=== PATIENT | female | born 1960 | race Caucasian/White ===

== ENCOUNTER → 2019-08-19 07:27 | Outpatient (BNVA) | payer MEDICARE, SELFPAY | PROVIDERS: Visit Provider Nurse Practitioner | DX: F41.1 Generalized anxiety disorder (principal) | CPT/HCPCS: 99213 ==

== ENCOUNTER → 2019-11-24 07:32 | Outpatient (BNVA) | payer MEDICARE, SELFPAY | PROVIDERS: Visit Provider Nurse Practitioner | DX: F41.1 Generalized anxiety disorder (principal) | CPT/HCPCS: 99213 ==

== ENCOUNTER → 2020-02-22 07:41 | Outpatient (BNVA) | payer MEDICARE, SELFPAY | PROVIDERS: Visit Provider Nurse Practitioner | DX: F41.1 Generalized anxiety disorder (principal) | CPT/HCPCS: 99213 ==

== ENCOUNTER → 2020-05-25 08:36 | Outpatient (BNVA) | payer MEDICARE, SELFPAY | PROVIDERS: Visit Provider Nurse Practitioner | DX: F41.1 Generalized anxiety disorder (principal) | CPT/HCPCS: 99213 ==

== ENCOUNTER → 2020-08-23 08:31 | Outpatient (BNVA) | payer MEDICARE, SELFPAY | PROVIDERS: Visit Provider Nurse Practitioner | DX: F41.1 Generalized anxiety disorder (principal) | CPT/HCPCS: 99214 ==

== ENCOUNTER → 2020-11-16 07:35 | Outpatient (BNVA) | payer MEDICARE, SELFPAY | PROVIDERS: Visit Provider Nurse Practitioner | DX: F41.1 Generalized anxiety disorder (principal) | CPT/HCPCS: 99214 ==

== ENCOUNTER → 2021-02-19 08:41 | Outpatient (BNVA) | payer MEDICARE, SELFPAY | PROVIDERS: Visit Provider Nurse Practitioner | DX: F41.1 Generalized anxiety disorder (principal) | CPT/HCPCS: 99214 ==

== ENCOUNTER → 2021-05-21 07:42 | Outpatient (BNVA) | payer MEDICARE, SELFPAY | PROVIDERS: Visit Provider Nurse Practitioner | DX: F41.1 Generalized anxiety disorder (principal) | CPT/HCPCS: 99214 ==

== ENCOUNTER → 2021-08-20 12:50 | Outpatient (BNVA) | payer MEDICARE, SELFPAY | PROVIDERS: Visit Provider Nurse Practitioner | DX: F41.1 Generalized anxiety disorder (principal) | CPT/HCPCS: 99214 ==

== ENCOUNTER → 2021-11-13 07:16 | Outpatient (BNVA) | payer MEDICARE, SELFPAY | PROVIDERS: Visit Provider Nurse Practitioner | DX: F41.1 Generalized anxiety disorder (principal) | CPT/HCPCS: 99214 ==

== ENCOUNTER → 2023-10-08 16:50 | Outpatient (BNVA) | payer MEDICARE, SELFPAY | PROVIDERS: PCP Family Medicine; Visit Provider Family Medicine | DX: Z13.6 Encounter for screening for cardiovascular disorders (principal); F41.1 Generalized anxiety disorder | CPT/HCPCS: 80053; 80061; 83721; 84443; 85025 ==